=== PATIENT | male | born 1995 | race Two or more races ===

== ENCOUNTER → 2025-05-15 | Emergency (ER) | payer OTHER ==
[~2025-05-15] VITALS: Ht 167.6 cm; Wt 86.2 kg
[~2025-05-15] MED LIST: GILPHEX TR 3901 EACH PO; ISENTRESS400 MG PO; TIVICAY50 MG PO; TRUVADA 200 MG1 EACH PO
== END | disposition home or self-care (01) ==
LOC: ER 21:30
DX: R09.81 Nasal congestion (principal)